=== PATIENT | female | born 1955 | race Two or more races ===

== ENCOUNTER 2017-06-20 11:23 | Emergency (ER) | payer OTHER ==
[~2017-06-20] VITALS: Ht 162.6 cm; Wt 73.9 kg
[~2017-06-20 11:23] MED LIST: AVAPRO300 MG; INDAPAMIDE2.5 MG; NABUMETONE750 MG PO; NORVASC2.5 M1; [UNRECOGNIZED DRUG - OTHER]
== END 2017-06-20 14:35 | disposition home or self-care (01) ==
LOC: ER 11:23
DX: M54.5 Low back pain (principal)

== ENCOUNTER 2018-10-28 15:03 | Emergency (ER) | payer OTHER ==
[~2018-10-28] VITALS: Ht 162.6 cm; Wt 74.4 kg
[2018-10-28] MEDS ORDERED: DIOVAN320 MG PO (16:07)
[2018-10-28] MEDS ORDERED: VITAMIN D-32000 UNIT PO (16:08)
[2018-10-28] MEDS ORDERED: NORVASC5 MG PO (16:08)
[2018-10-28] MEDS ORDERED: INTESTINEX680 M1 PO (19:37)
[2018-10-28] MEDS ORDERED: DOXYCYCLINE HY100 MG PO (19:37)
[2018-10-28] MEDS ORDERED: ULTRACET PO (19:37)
== END 2018-10-28 20:02 | disposition home or self-care (01) ==
LOC: ER 15:03
DX: L03.115 Cellulitis of right lower limb (principal)

== ENCOUNTER 2018-12-20 08:15 | Emergency (ER) | payer OTHER ==
[~2018-12-20] VITALS: Ht 162.6 cm; Wt 74.8 kg
[~2018-12-20 08:15] MED LIST changes: +DIOVAN320 MG PO; +DOXYCYCLINE HY100 MG PO; +INTESTINEX680 M1 PO; +NORVASC5 MG PO; +ULTRACET PO; +VITAMIN D-32000 UNIT PO
== END 2018-12-20 13:51 | disposition home or self-care (01) ==
LOC: ER 08:15
DX: M75.22 Bicipital tendinitis, left shoulder (principal); M77.12 Lateral epicondylitis, left elbow; M25.512 Pain in left shoulder; M54.2 Cervicalgia

== ENCOUNTER 2023-05-07 15:57 | Emergency (ER) | payer OTHER ==
[~2023-05-07] VITALS: Ht 162.6 cm; Wt 81.6 kg
[2023-05-07] MEDS ORDERED: DIOVAN320 MG (16:12)
[2023-05-07] MEDS ORDERED: ABATINEX680 MG (16:13)
[2023-05-07 18:23] LABS: HEMATOCRIT 39.8 % (36.0-45.00); HEMOGLOBIN 13.1 g/dL (12.0-15.00); MEAN CELL VOLUME 93.9 fL (80.00-100.00); MEAN CORPUSCULAR HEMOGLOBIN 30.8 pg (27.00-32.0); MEAN CORPUSCULAR HGB CONC 32.8 g/dl (32.0-36.0); PLATELET COUNT 153 K/uL (150-450); RED BLOOD COUNT 4.24 M/uL (4.00-6.00); RED CELL DISTRIBUTION WIDTH 14.1 % (11.5-14.5)
== END 2023-05-07 19:09 | disposition home or self-care (01) ==
LOC: ER 15:58
PROVIDERS: General Practice
DX: M79.646 Pain in unspecified finger(s) (principal)

== ENCOUNTER 2024-06-03 11:36 | Emergency (ER) | payer OTHER ==
[~2024-06-03] VITALS: Ht 162.6 cm; Wt 81.6 kg
[~2024-06-03 11:36] MED LIST changes: +ABATINEX680 MG; +DIOVAN320 MG
[2024-06-03] MEDS ORDERED: CARDURA XL4 MG PO (12:52)
[2024-06-03] MEDS ORDERED: DEXAMETHASONE SODIUM PHOSPHATE 4 MG/ML VIAL IM STA (13:29)
[2024-06-03] MEDS ORDERED: KETOROLAC TROMETHAMINE 60 MG VIAL IM STA (13:29)
[2024-06-03] MEDS ORDERED: DEXAMETHASONE SODIUM PHOSPHATE 4 MG/ML VIAL ONE (13:44)
[2024-06-03] MEDS ORDERED: KETOROLAC TROMETHAMINE 60 MG VIAL IM ONE (13:45)
[2024-06-03 14:43] LABS: HEMATOCRIT 39.1 % (36.0-45.00); HEMOGLOBIN 12.7 g/dL (12.0-15.00); MEAN CELL VOLUME 91.5 fL (80.00-100.00); MEAN CORPUSCULAR HEMOGLOBIN 29.7 pg (27.00-32.0); MEAN CORPUSCULAR HGB CONC 32.5 g/dl (32.0-36.0); PLATELET COUNT 136 K/uL (150-450); RED BLOOD COUNT 4.27 M/uL (4.00-6.00); RED CELL DISTRIBUTION WIDTH 13.7 % (11.5-14.5)
[2024-06-03 15:02] LABS: CALCIUM 9.4 mg/dL (8.5-10.1); CREATININE SERUM 1.6 mg/dL (0.55-1.02); GFR 31.96; POTASSIUM 4.21 mEq/L (3.5-5.1)
[2024-06-03 15:13] LABS: URINE APPEARANCE Clear; URINE BILIRRUBIN Negative (NEGATIVE); URINE BLOOD Negative; URINE COLOR Yellow; URINE GLUCOSE Negative (NEGATIVE); URINE KETONE Negative (NEGATIVE); URINE LEUKOCYTE Small; URINE NITRATE Negative; URINE UROBILINOGEN 0.2 E.U./dl
[2024-06-03 15:17] LABS: URINE BACTERIA 993.8 uL (0.0-1933); URINE EPITHELIAL CELLS 18.8 uL (0.0-38.8); URINE RBC 2.2 uL (0.0-20.8); URINE WBC 51.1 uL (0.0-23.2)
[2024-06-03 15:30] LABS: URINE PROTEIN 100 (NEGATIVE)
[2024-06-03] MEDS ORDERED: CEFTRIAXONE SODIUM 1,000 MG VIAL IM STA (16:16)
[2024-06-03] MEDS ORDERED: LIDOCAINE HCL 1% 10ML VIAL ONE (16:38)
[2024-06-03] MEDS ORDERED: CEFTRIAXONE SODIUM 1,000 MG VIAL ONE (16:38)
== END 2024-06-03 17:28 | disposition home or self-care (01) ==
LOC: ER 11:39
PROVIDERS: General Practice
DX: J06.9 Acute upper respiratory infection, unspecified (principal)

== ENCOUNTER 2024-06-06 19:38 | Emergency (ER) | payer OTHER ==
[~2024-06-06] VITALS: Ht 162.6 cm; Wt 86.2 kg
[~2024-06-06 19:38] MED LIST changes: +CARDURA XL4 MG PO
[2024-06-06] MEDS ORDERED: MEPERIDINE HCL/PF 25 MG/ML VIAL IM STA ×2 (20:33→22:26)
[2024-06-07] MEDS ORDERED: MEPERIDINE HCL/PF 25 MG/ML VIAL IM STA (00:01)
== END 2024-06-07 01:15 | disposition home or self-care (01) ==
LOC: ER 19:40
DX: M54.89 Other dorsalgia (principal)